=== PATIENT | male | born 1985 | race Caucasian/White ===

== ENCOUNTER → 2021-12-24 | Outpatient (CLI) | payer SELFPAY | LOC: LAB 16:41 | PROVIDERS: Nurse Practitioner | DX: R50.9 Fever, unspecified (principal); R53.81 Other malaise; W57.XXXA Bitten or stung by nonvenomous insect and other nonvenomous arthropods, initial encounter ==

== ENCOUNTER 2022-03-03 02:14 | Emergency (ER) | payer SELFPAY ==
[~2022-03-03] VITALS: Ht 180.3 cm; Wt 93.2 kg
[2022-03-03] MEDS ORDERED: CIPROFLOXACIN 55 ML OT (03:07)
[2022-03-03] MEDS ORDERED: AMOXICILLIN AND1 TA2 PO (03:07)
[2022-03-03 03:15] VITALS: BP 116/73
== END 2022-03-03 03:15 | disposition home or self-care (01) ==
LOC: ED 02:14
DX: H66.92 Otitis media, unspecified, left ear (principal); L03.115 Cellulitis of right lower limb; H60.92 Unspecified otitis externa, left ear; Z28.310 Unvaccinated for COVID-19